=== PATIENT | female | born 1935 | race Caucasian/White ===

== ENCOUNTER 2017-05-24 12:59 | Emergency (ER) | payer OTHER ==
[~2017-05-24] VITALS: Ht 154.9 cm; Wt 72.6 kg
[~2017-05-24 12:59] MED LIST: ESTRADIOL; LISINOPRIL
--- NOTE | 2017-05-24 13:00 | NUR ---
Arrived via [facility] for syncopal spisode x 2. Reports household illness of N/V. She has had nausea though no vomiting. Placed in room 4 . Placed on child monitor, blood pressure machine and pulse oximeter. To gown for exam. Side rails up. Report given to Enrike STRAUSS.
--- NOTE | 2017-05-24 13:15 | NUR ---
Pt presents to ER c/o 2 syncope episodes today. Pt reports syncope while bringing food into her room and another episode while waiting for paramedics. Pt reports having upset stomach prior to syncope. Pt states she experienced nausea, vomiting x1, and diarrhea. Pt reports medical history of HTN & Hypothyroidism. Pt has colostomy in place. Surgical history of hysterectomy, gall bladder removal. Pt denies SOB, CP, denies smoking and alcohol consumption. No acute distress noted. AOX4. Family at bedside.
--- NOTE | 2017-05-24 13:20 | NUR ---
ER at bedside examining patient.
[2017-05-24 13:27] VITALS: BP_SYST 154
--- NOTE | 2017-05-24 13:30 | NUR ---
Pt had large amount of emesis, stomach content noted. Pt cleaned and gowned.
[2017-05-24] MEDS ORDERED: NACL 0.9% 1,000 ML IV ONE (13:32)
--- NOTE | 2017-05-24 13:40 | NUR ---
# 20 gauge angiocath placed to R WRIST. Use of asceptic technique. Opsite placed over site. Blood return noted. Blood for lab drawn from site. Flushed with 10 cc of normal saline. No evidence of infiltration noted. Patient tolerated well.
[2017-05-24] MEDS ORDERED: ONDANSETRON HCL 4 MG/2 ML VIAL IVP ONE (13:45)
--- NOTE | 2017-05-24 14:12 | NUR ---
IVF administered to pt and running. Pt tolerating well. Will continue to monitor.
[2017-05-24 14:46] LABS: HEMATOCRIT 40.4 % (36-48); HEMOGLOBIN 13.6 g/dL (12.0-16.0); MEAN CORPUSCULAR HEMOGLOBIN 31 pg (27-31); MEAN CORPUSCULAR HGB CONC 34 % (32-36); MEAN CORPUSCULAR VOLUME 91 fL (79.0-98.0); PLATELET COUNT (AUTO) 250 K/uL (130-430); RED BLOOD CELL COUNT(AUTO) 4.45 MIL/uL (4.2-6.2); RED CELL DISTRIBUTION WIDTH 12.7 % (9.0-15.0); WHITE BLOOD COUNT (AUTO) 10.8 K/uL (4.8-10.8)
--- NOTE | 2017-05-24 14:49 | NUR ---
EKG performed at by Scot STRAUSS. Physician given copy of EKG for review.
[2017-05-24 15:05] LABS: ANION GAP 5 (5-15); CALCIUM 9.1 mg/dL (8.4-11.0); CHLORIDE 105 mmol/L (98-107); CREATININE 1.15 mg/dL (0.55-1.30); GLUCOSE 143 mg/dL (70-99); SODIUM SERUM 138 mmol/L (136-145); UREA NITROGEN, BLOOD 17 mg/dL (8-21)
[2017-05-24 15:06] LABS: ALANINE AMINOTRANSFERASE 42 U/L (12-78); ASPARTATE AMINOTRANSFERASE 38 U/L (10-37); TOTAL BILIRUBIN 0.6 mg/dL (0.0-1.0)
[2017-05-24 15:07] LABS: ALBUMIN 3.3 g/dL (3.4-4.8); LIPASE 186 U/L (73-393)
[2017-05-24 15:38] LABS: BAND % (MANUAL) 1 % (0-6); BASOPHILS % (MANUAL) 0 % (0-2); EOSINOPHILS % (MANUAL) 0 % (0-7); LYMPHOCYTES % (MANUAL) 9 % (20-46); MONOCYTES % (MANUAL) 5 % (0-11)
[2017-05-24] MEDS ORDERED: cloNIDine HCL 0.1 MG TABLET PO ONE ×2 (16:00→17:00)
--- NOTE | 2017-05-24 16:13 | NUR ---
Pt's BP 174/80. Dr. Barron notified and he has ordered to give 0.1mg of Clonidine instead of 0.2mg. Will continue to monitor pt.
--- NOTE | 2017-05-24 16:20 | NUR ---
Pt given 0.1 mg of Clonidine as ordered by Dr. Barron. Pt tolerated well. Will continue to monitor.
--- NOTE | 2017-05-24 16:45 | NUR ---
ER at bedside providing patient and family with update on lab results and plan of action.
[2017-05-24 17:10] VITALS: BP_SYST 162
--- NOTE | 2017-05-24 17:10 | NUR ---
Patient given written and verbal discharge instructions and verbalizes understanding. ER MD discussed with patient the results and treatment provided. Patient in stable condition. ID arm band removed. IV catheter removed intact and dressing applied, no active bleeding. Rx of Zofran given. Patient educated on pain management and to follow up with PMD. Pain Scale 0/10. Opportunity for questions provided and answered.
== END 2017-05-24 17:10 | disposition home or self-care (01) ==
LOC: SED 12:59
DX: R42 Dizziness and giddiness (principal); K29.70 Gastritis, unspecified, without bleeding; I10 Essential (primary) hypertension; Z90.49 Acquired absence of other specified parts of digestive tract; Z90.710 Acquired absence of both cervix and uterus
CPT/HCPCS: 36415; 74020; 80053; 83690; 84484; 85007; 85027; 93005; 96361; 96374; 99285; J2405; J7030

== ENCOUNTER 2023-05-28 14:20 | Inpatient (IN) | payer OTHER ==
[~2023-05-28] VITALS: Ht 165.1 cm; Wt 65.8 kg
[2023-05-28 14:30] VITALS: BP_SYST 122; PULSE 79; RESP 18; TEMP 96.5; O2SAT 96
[2023-05-28] MEDS ORDERED: NACL 0.9% 1,000 ML IV ONE ×2 (14:45→16:00)
[2023-05-28 15:27] LABS: BASOPHILS % (AUTO) 0.1 % (0.0-2.0); HEMOGLOBIN 15.2 g/dL (12.0-16.0); LYMPHOCYTES # (AUTO) 2.6 K/uL (1.0-5.5); LYMPHOCYTES % (AUTO) 13.7 % (20.5-51.5); MEAN CORPUSCULAR HEMOGLOBIN 30 pg (27-31); MEAN CORPUSCULAR HGB CONC 32 % (32-36); MEAN CORPUSCULAR VOLUME 93 fL (79.0-98.0); MONOCYTES # (AUTO) 1.2 K/uL (0.0-1.0); MONOCYTES % (AUTO) 6.1 % (1.7-9.3); NEUTROPHILS # (AUTO) 15.3 K/uL (1.8-7.7); NEUTROPHILS % (AUTO) 80.1 % (40.0-70.0); PLATELET COUNT (AUTO) 266 K/uL (130-430); RED BLOOD CELL COUNT(AUTO) 5.04 MIL/uL (4.2-6.2); RED CELL DISTRIBUTION WIDTH 14.3 % (9.0-15.0); WHITE BLOOD COUNT (AUTO) 19.1 K/uL (4.8-10.8)
[2023-05-28 15:44] LABS: ALANINE AMINOTRANSFERASE 43 U/L (12-78); ANION GAP 11 (5-15); ASPARTATE AMINOTRANSFERASE 38 U/L (10-37); BILIRUBIN,DIRECT 0.4 mg/dL (0.0-0.3); CALCIUM 9.7 mg/dL (8.4-11.0); CARBON DIOXIDE 19 mmol/L (23-29); CHLORIDE 103 mmol/L (98-107); CREATINE KINASE, TOTAL 181 U/L (26-192); CREATININE 3.12 mg/dL (0.55-1.30); GLUCOSE 104 mg/dL (74-106); POTASSIUM 4.9 mmol/L (3.5-5.1); SODIUM SERUM 133 mmol/L (136-145); TOTAL BILIRUBIN 0.7 mg/dL (0.0-1.0); TOTAL PROTEIN, SERUM 6.7 g/dL (6.4-8.3)
[2023-05-28 15:52] LABS: UREA NITROGEN, BLOOD 138 mg/dL (8-21)
[2023-05-28] MEDS ORDERED: PIPERACILLIN/TAZO 3.375 GM in NS 50 ML IV ONE (16:00)
[2023-05-28] MEDS ORDERED: PIPERACILLIN/TAZOBACTAM 3.375 GM/VIAL (ZOSYN) IV ONE (17:03)
[2023-05-28 17:52] LABS: BILIRUBIN,URINE 1+ (NEGATIVE); BLOOD, URINE NEGATIVE (NEGATIVE); CLARITY/URINE CLEAR (CLEAR); GLUCOSE,URINE NEGATIVE (NEGATIVE); KETONES,URINE NEGATIVE (NEGATIVE); LEUKOCYTE ESTERASE ,URINE NEGATIVE (NEGATIVE); NITRITE, URINE POSITIVE (NEGATIVE); PH,URINE 5.5 (5.0-8.0); PROTEIN URINE NEGATIVE (NEGATIVE); UROBILINOGEN,URINE 0.2 (0.2-1.0)
[2023-05-28 17:55] LABS: COLOR,URINE BROWN (YELLOW)
[2023-05-28 18:01] LABS: BACTERIA,URINE RARE /HPF (None Seen); HYALINE CASTS, URINE 0-10 /LPF (None Seen); RBC,URINE 0-3 /HPF (0-3)
[2023-05-28 18:02] LABS: MUCUS,URINE 1+ /LPF (None Seen); OTHER CASTS, URINE MIXED CELL CASTS 1+ /LPF (None Seen)
[2023-05-28] MEDS: D5/0.45 NS 1,000 ML IV SCH (22:53)
[2023-05-29 09:00] VITALS: BP_SYST 136; PULSE 55; RESP 18; TEMP 96.9; O2SAT 98
[2023-05-29] MEDS ORDERED: cefTRIAXone 1 GM VIAL IV SCH (09:00)
[2023-05-29] MEDS: CEFTRIAXONE SOD 1 GM/ D5W 50 ML IV SCH ×2 (09:41)
[2023-05-29] MEDS: D5/0.45 NS 1,000 ML IV SCH ×2 (09:41→18:07)
[2023-05-29] MEDS ORDERED: ONDANSETRON HCL 4 MG/2 ML VIAL IVP PRN (10:15)
[2023-05-29] MEDS ORDERED: HYDROcodone/ACETAMIN 5-325 MG TAB (NORCO/ VICODIN) PO PRN ×2 (10:15→10:30)
[2023-05-29] MEDS ORDERED: ACETAMINOPHEN 325 MG TABLET PO PRN ×2 (10:15→10:30)
[2023-05-29] MEDS ORDERED: NALOXONE HCL 0.4 MG/ML AMP (NARCAN) IVP PRN (10:15)
[2023-05-29 11:19] LABS: BASOPHILS % (AUTO) 0.1 % (0.0-2.0); HEMATOCRIT 40.7 % (36-48); HEMOGLOBIN 13.4 g/dL (12.0-16.0); LYMPHOCYTES # (AUTO) 2.1 K/uL (1.0-5.5); LYMPHOCYTES % (AUTO) 11.9 % (20.5-51.5); MEAN CORPUSCULAR HEMOGLOBIN 30 pg (27-31); MEAN CORPUSCULAR HGB CONC 33 % (32-36); MEAN CORPUSCULAR VOLUME 93 fL (79.0-98.0); MONOCYTES # (AUTO) 1.1 K/uL (0.0-1.0); NEUTROPHILS # (AUTO) 14.7 K/uL (1.8-7.7); PLATELET COUNT (AUTO) 201 K/uL (130-430); RED BLOOD CELL COUNT(AUTO) 4.41 MIL/uL (4.2-6.2); RED CELL DISTRIBUTION WIDTH 13.8 % (9.0-15.0)
[2023-05-29 11:56] LABS: ALANINE AMINOTRANSFERASE 35 U/L (12-78); ALBUMIN 1.8 g/dL (3.4-4.8); ANION GAP 9 (5-15); ASPARTATE AMINOTRANSFERASE 35 U/L (10-37); CALCIUM 8.2 mg/dL (8.4-11.0); CARBON DIOXIDE 22 mmol/L (23-29); CHLORIDE 107 mmol/L (98-107); CREATININE 2.64 mg/dL (0.55-1.30); GLUCOSE 86 mg/dL (74-106); POTASSIUM 3.7 mmol/L (3.5-5.1); SODIUM SERUM 138 mmol/L (136-145); TOTAL BILIRUBIN 0.6 mg/dL (0.0-1.0); TOTAL PROTEIN, SERUM 5.5 g/dL (6.4-8.3)
[2023-05-29 11:57] LABS: UREA NITROGEN, BLOOD 120 mg/dL (8-21)
[2023-05-29 12:00] VITALS: BP_SYST 132; PULSE 75; RESP 18; TEMP 96.7; O2SAT 98
[2023-05-29 16:00] VITALS: BP_SYST 133; PULSE 84; RESP 19; TEMP 96.8; O2SAT 98
[2023-05-29 20:02] VITALS: BP_SYST 130; PULSE 61; RESP 18; TEMP 97.6; O2SAT 97
[2023-05-30 00:06] VITALS: BP_SYST 147; PULSE 71; RESP 14; TEMP 97.7; O2SAT 97
[2023-05-30 07:51] LABS: HEMOGLOBIN 11.7 g/dL (12.0-16.0); WHITE BLOOD COUNT (AUTO) 11.5 K/uL (4.8-10.8)
[2023-05-30 07:52] LABS: BASOPHILS % (AUTO) 0.2 % (0.0-2.0); EOSINOPHILS % (AUTO) 0.4 % (0.0-4.0); LYMPHOCYTES # (AUTO) 1.4 K/uL (1.0-5.5); LYMPHOCYTES % (AUTO) 12.3 % (20.5-51.5); MEAN CORPUSCULAR HEMOGLOBIN 29 pg (27-31); MEAN CORPUSCULAR HGB CONC 32 % (32-36); MEAN CORPUSCULAR VOLUME 92 fL (79.0-98.0); MONOCYTES # (AUTO) 0.8 K/uL (0.0-1.0); NEUTROPHILS # (AUTO) 9.2 K/uL (1.8-7.7); NEUTROPHILS % (AUTO) 80.1 % (40.0-70.0); PLATELET COUNT (AUTO) 145 K/uL (130-430); RED CELL DISTRIBUTION WIDTH 14.1 % (9.0-15.0)
[2023-05-30 08:00] VITALS: BP_SYST 150; PULSE 70; RESP 16; TEMP 97; O2SAT 98
[2023-05-30] MEDS: CEFTRIAXONE SOD 1 GM/ D5W 50 ML IV SCH ×2 (08:04)
[2023-05-30 08:05] LABS: ALANINE AMINOTRANSFERASE 31 U/L (12-78); ALBUMIN 1.5 g/dL (3.4-4.8); ANION GAP 10 (5-15); ASPARTATE AMINOTRANSFERASE 35 U/L (10-37); CALCIUM 8.8 mg/dL (8.4-11.0); CARBON DIOXIDE 21 mmol/L (23-29); CHLORIDE 107 mmol/L (98-107); CREATININE 2.12 mg/dL (0.55-1.30); GLUCOSE 105 mg/dL (74-106); SODIUM SERUM 138 mmol/L (136-145); TOTAL BILIRUBIN 0.3 mg/dL (0.0-1.0); TOTAL PROTEIN, SERUM 4.9 g/dL (6.4-8.3); UREA NITROGEN, BLOOD 97 mg/dL (8-21)
[2023-05-30] MEDS: D5/0.45 NS 1,000 ML IV SCH ×3 (11:00→16:11)
[2023-05-30 12:03] VITALS: BP_SYST 149; PULSE 72; RESP 15; TEMP 98; O2SAT 97
[2023-05-30 16:24] VITALS: BP_SYST 135; PULSE 72; RESP 17; TEMP 97.1; O2SAT 97
[2023-05-30 20:05] VITALS: BP_SYST 155; PULSE 77; RESP 18; TEMP 97.2; O2SAT 98
[2023-05-30] MEDS ORDERED: LEVO88TA2 PO (21:35)
[2023-05-30] MEDS ORDERED: CARV25TA55 PO (21:35)
[2023-05-30] MEDS ORDERED: LOSA-415 PO (21:35)
[2023-05-30] MEDS ORDERED: CARVEDILOL 25 MG TABLET (COREG) PO ONE (21:45)
[2023-05-30] MEDS ORDERED: CARVEDILOL 25 MG TABLET (COREG) ONE (23:30)
[2023-05-31] VITALS (7 sets, daily range): BP systolic 106–166; PULSE 59–78; RESP 16–18; TEMP 96.9–98.3; O2SAT 93–98
[2023-05-31] MEDS ORDERED: NACL 0.9% 1,000 ML IV ONE (00:45)
[2023-05-31] MEDS ORDERED: POTASSIUM CHLORIDE 20 MEQ TABLET.ER PO ONE ×2 (04:15→14:30)
[2023-05-31] MEDS: D5/0.45 NS 1,000 ML IV SCH (06:29)
[2023-05-31] MEDS: LEVOTHYROXINE SODIUM 0.088 MG TABLET PO SCH (07:42)
[2023-05-31] MEDS: LOSARTAN POTASSIUM 50 MG TABLET (COZAAR) PO SCH (08:20)
[2023-05-31] MEDS: CARVEDILOL 25 MG TABLET (COREG) PO SCH ×2 (08:21→22:14)
[2023-05-31] MEDS: CEFTRIAXONE SOD 1 GM/ D5W 50 ML IV SCH ×2 (08:23)
[2023-05-31 08:25] LABS: EOSINOPHILS # (AUTO) 0.1 K/uL (0.0-0.4); EOSINOPHILS % (AUTO) 0.7 % (0.0-4.0); HEMATOCRIT 36.6 % (36-48); LYMPHOCYTES # (AUTO) 1.4 K/uL (1.0-5.5); LYMPHOCYTES % (AUTO) 17.3 % (20.5-51.5); MEAN CORPUSCULAR HEMOGLOBIN 30 pg (27-31); MEAN CORPUSCULAR HGB CONC 33 % (32-36); MEAN CORPUSCULAR VOLUME 92 fL (79.0-98.0); MONOCYTES # (AUTO) 0.7 K/uL (0.0-1.0); MONOCYTES % (AUTO) 8.6 % (1.7-9.3); NEUTROPHILS # (AUTO) 5.9 K/uL (1.8-7.7); NEUTROPHILS % (AUTO) 73.4 % (40.0-70.0); PLATELET COUNT (AUTO) 124 K/uL (130-430); RED BLOOD CELL COUNT(AUTO) 3.99 MIL/uL (4.2-6.2); RED CELL DISTRIBUTION WIDTH 13.8 % (9.0-15.0)
[2023-05-31 08:53] LABS: ALANINE AMINOTRANSFERASE 41 U/L (12-78); ALBUMIN 1.5 g/dL (3.4-4.8); ANION GAP 6 (5-15); ASPARTATE AMINOTRANSFERASE 41 U/L (10-37); CALCIUM 7.4 mg/dL (8.4-11.0); CARBON DIOXIDE 22 mmol/L (23-29); CHLORIDE 111 mmol/L (98-107); CREATININE 1.43 mg/dL (0.55-1.30); GLUCOSE 114 mg/dL (74-106); POTASSIUM 3.2 mmol/L (3.5-5.1); SODIUM SERUM 139 mmol/L (136-145); TOTAL BILIRUBIN 0.4 mg/dL (0.0-1.0); TOTAL PROTEIN, SERUM 4.7 g/dL (6.4-8.3); UREA NITROGEN, BLOOD 60 mg/dL (8-21)
[2023-05-31] MEDS ORDERED: BALSAM PERU/CASTOR OIL 56.7 GM OINT...G. TP ONE (17:00)
[2023-06-01] VITALS: BP_SYST 129; PULSE 67; RESP 16; TEMP 96.3; O2SAT 98
[2023-06-01] MEDS: D5/0.45 NS 1,000 ML IV SCH ×2 (00:54→09:27)
[2023-06-01] MEDS: LEVOTHYROXINE SODIUM 0.088 MG TABLET PO SCH (06:41)
[2023-06-01 08:29] VITALS: BP_SYST 126; PULSE 70; RESP 18; TEMP 97; O2SAT 98
[2023-06-01] MEDS ORDERED: BALSAM PERU/CASTOR OIL 56.7 GM OINT...G. TP SCH (09:00)
[2023-06-01] MEDS: LOSARTAN POTASSIUM 50 MG TABLET (COZAAR) PO SCH (09:25)
[2023-06-01] MEDS: CEFTRIAXONE SOD 1 GM/ D5W 50 ML IV SCH ×2 (09:25)
[2023-06-01] MEDS: CARVEDILOL 25 MG TABLET (COREG) PO SCH (09:26)
[2023-06-01 11:14] VITALS: BP_SYST 133; PULSE 71; RESP 16; TEMP 96.8; O2SAT 98
[2023-06-01 15:19] VITALS: BP_SYST 127; PULSE 59; RESP 16; TEMP 97.7; O2SAT 98
[2023-06-01 16:25] VITALS: BP_SYST 127; PULSE 62; RESP 18; TEMP 97.7; O2SAT 98
== END 2023-06-01 17:50 | DRG 871 ==
LOC: SED 14:20 → STU 19:42
PROVIDERS: ADMIT Specialist; ATTEND Specialist
PROC: 05HY33Z Insertion of Infusion Device into Upper Vein, Percutaneous Approach (ICD-10-PCS; principal; 2023-05-30)
PROC: B54NZZA Ultrasonography of Left Upper Extremity Veins, Guidance (ICD-10-PCS; 2023-05-30)
DX: A41.9 Sepsis, unspecified organism (principal); E43 Unspecified severe protein-calorie malnutrition; G93.41 Metabolic encephalopathy; N17.9 Acute kidney failure, unspecified; E87.20 Acidosis, unspecified; L03.317 Cellulitis of buttock; E86.0 Dehydration; J44.9 Chronic obstructive pulmonary disease, unspecified; D72.829 Elevated white blood cell count, unspecified; F03.90 Unspecified dementia, unspecified severity, without behavioral disturbance, psychotic disturbance, mood disturbance, and anxiety; I12.9 Hypertensive chronic kidney disease with stage 1 through stage 4 chronic kidney disease, or unspecified chronic kidney disease; N18.32 Chronic kidney disease, stage 3b; Z68.24 Body mass index [BMI] 24.0-24.9, adult
CPT/HCPCS: 36415; 70450-TC; 71045; 76376; 80048; 80053; 80076; 81000; 81001; 81015; 82272; 82550; 83605; 83880; 84484; 85025; 87040; 87086; 93005; 96365; 97112-GP; 97530-GP; 99285; G0378; J0696; J2543; J7060

== ENCOUNTER 2023-07-17 16:24 | Emergency (ER) | payer OTHER ==
[~2023-07-17] VITALS: Ht 160 cm; Wt 65.8 kg
[~2023-07-17 16:24] MED LIST changes: +CARV25TA55 PO; +LEVO88TA2 PO; -LISINOPRIL
[2023-07-17 16:38] VITALS: BP_SYST 149; PULSE 80; RESP 18; TEMP 97; O2SAT 96
[2023-07-17 17:19] LABS: BASOPHILS # (AUTO) 0.1 K/uL (0.0-0.2); BASOPHILS % (AUTO) 0.8 % (0.0-2.0); EOSINOPHILS # (AUTO) 0.2 K/uL (0.0-0.4); HEMATOCRIT 33.1 % (36-48); HEMOGLOBIN 11.1 g/dL (12.0-16.0); LYMPHOCYTES # (AUTO) 3.5 K/uL (1.0-5.5); MEAN CORPUSCULAR HEMOGLOBIN 31 pg (27-31); MEAN CORPUSCULAR HGB CONC 33 % (32-36); MEAN CORPUSCULAR VOLUME 92 fL (79.0-98.0); MONOCYTES # (AUTO) 1.1 K/uL (0.0-1.0); MONOCYTES % (AUTO) 10.4 % (1.7-9.3); NEUTROPHILS % (AUTO) 54.8 % (40.0-70.0); PLATELET COUNT (AUTO) 327 K/uL (130-430); RED BLOOD CELL COUNT(AUTO) 3.61 MIL/uL (4.2-6.2); RED CELL DISTRIBUTION WIDTH 15.3 % (9.0-15.0); WHITE BLOOD COUNT (AUTO) 10.9 K/uL (4.8-10.8)
[2023-07-17 17:52] LABS: ANION GAP 10 (5-15); CALCIUM 9.2 mg/dL (8.4-11.0); CARBON DIOXIDE 26 mmol/L (23-29); CHLORIDE 106 mmol/L (98-107); CREATININE 1.25 mg/dL (0.55-1.30); GLUCOSE 121 mg/dL (74-106); SODIUM SERUM 142 mmol/L (136-145); UREA NITROGEN, BLOOD 31 mg/dL (8-21)
[2023-07-17 17:54] LABS: POTASSIUM 2.8 mmol/L (3.5-5.1)
[2023-07-17] MEDS: POTASSIUM CHLORIDE 20 MEQ/PKT PACKET PO ONE (18:54)
[2023-07-17 21:20] VITALS: BP_SYST 136; PULSE 61; RESP 16; TEMP 97.1; O2SAT 95
== END 2023-07-17 21:20 | disposition home or self-care (01) ==
LOC: SED 16:24
DX: R07.9 Chest pain, unspecified (principal); J44.9 Chronic obstructive pulmonary disease, unspecified; I10 Essential (primary) hypertension; Z79.899 Other long term (current) drug therapy
CPT/HCPCS: 36415; 71045; 80048; 84484; 85025; 93005; 99285